=== PATIENT | female | born 1970 | race Caucasian/White ===

== ENCOUNTER 2020-04-10 16:56 | Outpatient (CLI) | payer OTHER ==
--- NOTE | 2020-04-10 17:32 | XRAY Report ---
PROCEDURE: Foot 3 View RT INDICATIONS: RIGHT FOOT CONTUSION TECHNIQUE: views of the foot were acquired. COMPARISON: None. FINDINGS: Bones: No fractures or dislocations. No suspicious bony lesions. Soft tissues: No tibiotalar joint effusion. Achilles tendon appears normal. IMPRESSION: No trauma found. Reviewed by: Felipe Hagen MD on 04/10/2020 5:30 PM [facility] Approved by: Felipe Hagen MD on 04/10/2020 5:30 PM [facility] Station ID: [id number]
== END 2020-04-10 16:57 | disposition home or self-care (01) ==
LOC: DI.S 16:56
PROVIDERS: ATTEND Emergency Medicine
DX: S90.31XA Contusion of right foot, initial encounter (principal)

== ENCOUNTER 2020-10-19 08:00 | Outpatient (CLI) | payer OTHER ==
--- NOTE | 2020-10-19 11:16 | XRAY Report ---
PROCEDURE: Knee 3 View RT INDICATIONS: RIGHT KNEE PAIN TECHNIQUE: 3 views of the right knee(s) were acquired. COMPARISON: None. FINDINGS: Bones: No fractures or dislocations. No suspicious bony lesions. Moderate joint space narrowing no trina. Soft tissues: Small joint effusion. No radiopaque foreign body. IMPRESSION: Moderate joint space narrowing and small joint effusion without fracture or foreign body . Reviewed by: Sunil Savage MD on 10/19/2020 10:14 AM [facility] Approved by: Sunil Savage MD on 10/19/2020 10:14 AM [facility] Station ID: [id number]
== END 2020-10-19 23:59 | disposition home or self-care (01) ==
LOC: DI.S 08:00
PROVIDERS: ATTEND Physician Assistant Medical
DX: M25.561 Pain in right knee (principal); M25.461 Effusion, right knee

== ENCOUNTER 2020-12-27 10:37 | Outpatient (CLI) | payer OTHER ==
[2020-12-27 14:33] LABS: BASOPHILS # (AUTO) 0.1 10^3/uL (0.0-0.1); BASOPHILS % (AUTO) 0.8 %; EOSINOPHILS # (AUTO) 0.2 10^3/uL (0.0-0.7); EOSINOPHILS % (AUTO) 3.5 %; HCT - HEMATOCRIT 40.6 % (37.0-47.0); HGB - HEMOGLOBIN 13.2 g/dL (12.0-16.0); LYMPHOCYTES # (AUTO) 2.3 10^3/uL (1.5-3.5); LYMPHOCYTES % (AUTO) 37.7 %; MEAN CORPUSCULAR HGB CONC 32.5 g/dL (32.0-36.0); MEAN CORPUSCULAR VOLUME 89.2 fL (81.0-99.0); MEAN PLATELET VOLUME 11.9 fL (7.9-10.8); MONOCYTES # (AUTO) 0.5 10^3/uL (0.0-1.0); MONOCYTES % (AUTO) 8.1 %; NEUTROPHILS % (AUTO) 49.7 %; PLT - PLATELET COUNT 264 10^3/uL (130-450); RED BLOOD COUNT 4.55 10^6/uL (4.20-5.40); RED CELL DISTRIBUTION WIDTH 13.8 % (12.0-15.0)
[2020-12-27 14:51] LABS: ALBUMIN 4.3 g/dL (3.2-5.5); ALBUMIN/GLOBULIN RATIO 1.4 (1.0-2.2); ALKALINE PHOSPHATASE 69 IU/L (42-121); ALT ALANINE AMINOTRANSFERASE 27 IU/L (10-60); AST ASPARTATE AMINOTRANSFERASE 20 IU/L (10-42); BILIRUBIN,TOTAL 0.5 mg/dL (0.2-1.0); BUN - BLOOD UREA NITROGEN 11 mg/dL (6-20); CARBON DIOXIDE - CO2 21 mmol/L (21-32); CHLORIDE 110 mmol/L (101-111); CHOL/HDL RATIO 6.4 (<4.4); CHOLESTEROL 225 mg/dL; CREATININE 0.8 mg/dL (0.4-1.0); GFR - MDRD 76 (>89); GLUCOSE 111 mg/dL (70-100); HDL CHOLESTEROL 35 mg/dL; LDL CHOLESTEROL,CALCULATED 147 mg/dL; LDL/HDL RATIO 4.2 (<4.4); POTASSIUM 3.8 mmol/L (3.5-5.0); SODIUM 141 mmol/L (135-145); TOTAL PROTEIN 7.3 g/dL (6.7-8.2); TRIGLYCERIDES 215 mg/dL; VLDL CHOLESTEROL 43 mg/dL
[2020-12-27 15:26] LABS: THYROID STIMULATING HORMONE 2.54 uIU/mL (0.34-5.60)
== END 2020-12-27 10:38 | disposition home or self-care (01) ==
LOC: LAB.S 10:37
PROVIDERS: ATTEND Registered Nurse
DX: M54.5 Low back pain (principal); Z83.49 Family history of other endocrine, nutritional and metabolic diseases; G43.909 Migraine, unspecified, not intractable, without status migrainosus; Z79.899 Other long term (current) drug therapy; G47.30 Sleep apnea, unspecified; G89.29 Other chronic pain
CPT/HCPCS: 36415; 80053; 80061; 83721; 84443; 85025

== ENCOUNTER 2022-04-08 09:43 | Outpatient (CLI) | payer OTHER ==
--- NOTE | 2022-04-09 12:46 | Mammography Report ---
BILATERAL DIGITAL SCREENING MAMMOGRAM 3D/2D WITH EXAGGERATED CC: 04/08/2022 CLINICAL: Baseline exam. Routine screening. No prior exams were available for comparison. Both breasts are heterogeneously dense, which may obscure small masses (category c / 51-75% glandular tissue). There is a 1.2 cm x 0.5 cm oval equal density focal asymmetry in the right breast at 5 o'clock middle depth. No other significant masses, calcifications, or other findings are seen in either breast. IMPRESSION: INCOMPLETE: NEEDS ADDITIONAL IMAGING EVALUATION The 1.2 cm x 0.5 cm oval equal density focal asymmetry in the right breast resembles a cyst, a lymph node, or a fibroadenoma and is indeterminate. Additional views with possible ultrasound are recommen ded. Based on the Tyrer Cuzick model (a risk assessment model) the patients lifetime risk is 13.2% and he r 10 year risk is 3.1%. According to the ACR, ACS, and NCCN guidelines, an annual breast MRI exam tyson ng with mammogram is recommended if the patients lifetime risk is 20% or greater. This exam was interpreted at Station ID: [id number]. NOTE: For mammograms, a report in lay terms will be sent to the patient. Approximately 15% of breast malignancies will not be visualized mammographically. In the management of a palpable breast mass, a negative mammogram must not discourage biopsy of a clinically suspicious lesion. Electronically Signed By: Reinier White M.D. atlin/farhat:04/08/2022 11:45:41 ACR BI-RADS Category 0: Incomplete 3340F PARENCHYMAL PATTERN: (D) - The breast(s) demonstrate(s) heterogeneously dense fibroglandular parmarky ma. BI-RADS CATEGORY: (0) - 0 Mammo and [place] [id number] Immediate follow-up LATERALITY: (R)
== END 2022-04-08 09:44 | disposition home or self-care (01) ==
LOC: DI.S 09:43
PROVIDERS: ATTEND Registered Nurse
DX: Z12.31 Encounter for screening mammogram for malignant neoplasm of breast (principal); R92.2 Inconclusive mammogram

== ENCOUNTER 2022-04-22 07:18 | Outpatient (CLI) | payer OTHER ==
--- NOTE | 2022-04-22 13:23 | Ultrasound Report ---
ULTRASOUND OF RIGHT BREAST: 04/22/2022 CLINICAL: Patient returns today to evaluate a focal asymmetry in the right breast. Comparison is made to exams dated: 04/22/2022 mammogram and 04/08/2022 mammogram - [facility]. Color flow and real-time ultrasound of the right breast were performed. Aguiar scale images of the [place] l-time examination were reviewed. There is an irregular mass in the right breast at 5 o'clock middle depth. This irregular mass is hyp oechoic with internal echoes and posterior acoustic enhancement. This correlates with mammography fi ndings. IMPRESSION: PROBABLY BENIGN The irregular mass in the right breast likely represents a fibroadenoma and is probably benign. A follow-up ultrasound in 6 months is recommended to demonstrate stability. This exam was interpreted at Station ID: [id number]. Electronically Signed By: Candice Peralta M.D. lk/:04/22/2022 08:54:59 Ultrasound BI-RADS: 3 Probably benign BI-RADS CATEGORY: (3) - 3 Ultrasound [id number] 6 month follow-up LATERALITY: (B)
--- NOTE | 2022-04-22 13:23 | Mammography Report ---
UNILATERAL RIGHT DIGITAL DIAGNOSTIC MAMMOGRAM 3D/2D WITH SPOT COMPRESSION: 04/22/2022 CLINICAL: Patient returns today to evaluate a focal asymmetry in the right breast. Comparison is made to exam dated: 04/08/2022 mammogram - [facility]. The right breast is heterogeneously dense, which may obscure small masses (category c / 51-75% glandu lar tissue). There is a 1.2 cm x 0.5 cm focal asymmetry in the right breast at 5 o'clock middle depth. This is se en in additional views. No other significant masses or calcifications are seen in the breast. IMPRESSION: INCOMPLETE: NEEDS ADDITIONAL IMAGING EVALUATION The 1.2 cm x 0.5 cm focal asymmetry in the right breast is indeterminate. A targeted ultrasound of t he right breast is recommended and will be performed immediately following this exam. Based on the Tyrer Cuzick model (a risk assessment model) the patients lifetime risk is 13.2% and he r 10 year risk is 3.1%. According to the ACR, ACS, and NCCN guidelines, an annual breast MRI exam tyson ng with mammogram is recommended if the patients lifetime risk is 20% or greater. This exam was interpreted at Station ID: [id number]. NOTE: For mammograms, a report in lay terms will be sent to the patient. Approximately 15% of breast malignancies will not be visualized mammographically. In the management of a palpable breast mass, a negative mammogram must not discourage biopsy of a clinically suspicious lesion. Electronically Signed By: Candice Peralta M.D. lk/:04/22/2022 08:13:57 ACR BI-RADS Category 0: Incomplete 3340F PARENCHYMAL PATTERN: (D) - The breast(s) demonstrate(s) heterogeneously dense fibroglandular [place]. BI-RADS CATEGORY: (0) - 0 Ultrasound [id number] Immediate follow-up LATERALITY: (B)
== END 2022-04-22 07:19 | disposition home or self-care (01) ==
LOC: DI 07:18
PROVIDERS: ATTEND Registered Nurse
DX: N63.14 Unspecified lump in the right breast, lower inner quadrant (principal)

== ENCOUNTER 2022-07-27 09:08 | Outpatient (CLI) | payer OTHER ==
--- NOTE | 2022-07-29 13:49 | SLEEP CARE CONSULTATION ---
Information from patient questionnaire entered by Radha Bond. I have reviewed and concur with the information entered by Radha Bond. This document represents the service I personally performed and the decisions made by me, Samuel Roberto MD, [facility]. History of Present Illness Service Date and Time: 07/27/2022 0908 Reason for Visit: New patient Chief Complaint: reports: Insomnia, Snoring, Fatigue, Frequent awakenings at night Time it takes to fall asleep: 10MIN Snores at night: Yes Observed to quit breathing while asleep: Yes Sleeps alone due to snoring: No Number of times waking at night: 3 Reasons for waking at night: reports: Choking, Snoring, Pain, Bathroom, Other (UNKNOWN) Toss, Turn, or Twitch while sleeping: Yes Recalls having dreams: Yes Usually gets out of bed at: 6-7AM Feels refreshed in the morning: No Morning headache: Yes Sleepy or fatigued during the day: Yes Ever fallen asleep while driving: No Takes day naps: No Dreams during day naps: Yes Prior sleep studies: Yes Additional HPI information: I have the pleasure of seeing Ms. Santana today regarding the possibility of her having obstructive sleep apnea. As you know, she is a 51-year-old lady who complains of frequent awakenings, loud snore, and persistent fatigue for about 10 years. She said she had a home sleep apnea test (HSAT) with [facility] and was told she had mild obstructive sleep apnea-hypopnea. She used a CPAP for 1.5 years. It helped initially but not toward the end. She said she quit also because her mask did not fit. She lost 20 lbs since the diagnosis. The patient tells me that she normally goes to bed around 10 pm, and it takes her approximately 10 30 minutes to fall asleep. She continues to snore loudly. Her also sees her quit breathing, although not lately. Her sleeps in the same bed and snores loudly. She can recall waking up on the average of 6 - 7 times during the night. Most of the time she wakes up because of her husbands snore, her own snoring, choking, and having to gasp for air. There is a lot of tossing and turning in her sleep. In the morning she usually gets up out of the bed around 6 - 7 a.m. not feeling refreshed nor rested. She usually has a morning headache. During the day she complains of feeling sleepy and fatigued. Her score on [place] Sleepiness Scale is 12 out of 24. She has never fallen asleep while driving nor has had any accident due to sleepiness. She usually does not take naps during the day. Upon falling asleep during the day she admits to denies having vivid dreams. She reports having impaired concentration during the day. - Parasomnia Symptoms Ever been unable to move upon waking from sleep: No Walks in sleep: Yes Talks in sleep: Yes Ever acted out dreams in sleep: No Ever felt weak in the knees when startled or emotional: Yes Bothered by creepy, crawly, restless sensations in legs: Yes Problems with memory or concentration: Yes Subjective Initial [place] Sleepiness Scale score: 12 (07/04/22) Past Medical History Past Medical History: reports: Anxiety, GERD Social History The patient's occupation is a [employer]. Patient is and lives in [place]. Have you smoked in the past 12 months: No Years of smokin Quit date: 2001 Alcohol use: Yes Alcohol amount and frequency: RANDOM Caffeine use: Yes Caffeine amount and frequency: SELDOM Allergies and Home Medications Known drug allergies: No Drug allergies reviewed: Yes Home medication list reviewed: Yes Review of Systems Weight gain over past 5 years: 30 Cardiovascular: denies: high blood pressure, palpitations, chest pain, irregular heart rate or pulse, leg or foot swelling, have to sleep sitting up, other Respiratory: denies: shortness of breath, wheeze, sputum production, chronic cough, other Gastrointestinal: reports: heartburn, difficulty swallowing Urinary: denies: incontinence, frequency, urgency, impotence, other Neurological: denies: headaches, seizure, head trauma, disorientation, speech dysfunction, gait or balance problems, fainting or unconsciousness, other Psychiatric: denies: Attention Deficit Hyperactivity, anxiety, depression, mood disorder, claustrophobia, other Ear/Nose/Throat: reports: nasal congestion, sinus problems, dry mouth/throat Endocrine: reports: sluggishness, too hot or cold Musculoskeletal: reports: joint pain, neck pain, back pain, joint swelling, muscle pain or cramping Immunologic: reports: sneezing Physical Exam Vital signs obtained and entered by: RADHA Kim MA Blood Pressure: 126/74 (LEFT ARM) Cuff size: regular Heart Rate: 66 O2 Saturation: 100 Height: 5 ft 1 in Weight: 180 lb Body Mass Index: 34.0 BMI Classification: Obese Neck circumference: 14.25 Mood/affect: normal HEENT: No craniofacial malformation Nostrils: patent to airflow Turbinates: normal Septum: midline Mouth and throat: narrow oropharynx Soft palate: long Hard palate: normal Uvula: normal Uvula visualization: 50% Mallampati Class II Tongue: normal in size Tonsils: small Chin and jaw: normal size and position Neck: normal w/o lymphadenopathy or thyromegaly Heart: regular rate and rhythm Lungs: clear bilaterally Extremities: no edema or clubbing Neurologic: intact Impression and Plan IMPRESSION: 1. Obstructive Sleep Apnea-Hypopnea Syndrome, mild, as previously diagnosed. This may be the reason for her waking up frequently during the night. Obesity is a common predisposing factor for obstructive sleep apnea- hypopnea syndrome. An in-laboratory polysomnography will be ordered to see if she still has the sleep-related breathing disorder. Plan: 1. Schedule an in-laboratory polysomnography. 2. Avoid long distance driving or when feeling sleepy. 3. Avoid alcohol, sedative and muscle relaxant around bedtime. 4. Attempt to lose more weight. 5. Return for follow up after the sleep study. Visit Type: In Office Time Spent with Patient (minutes): 15 Provider Statement: I spent 100% of the Face to Face Visit with the patient with greater than 50% spent counseling the patient and coordination of care.
[2022-07-29 13:50] VITALS: BP 126/74
== END 2022-07-27 09:09 | disposition home or self-care (01) ==
LOC: SC 09:08
PROVIDERS: ATTEND Internal Medicine Pulmonary Disease
DX: G47.33 Obstructive sleep apnea (adult) (pediatric) (principal); E66.9 Obesity, unspecified; Z68.34 Body mass index [BMI] 34.0-34.9, adult
CPT/HCPCS: 99202; 99212

== ENCOUNTER 2022-08-13 19:53 | Outpatient (CLI) | payer OTHER | END 2022-08-13 19:54 | disposition home or self-care (01) | LOC: SC 19:53 | PROVIDERS: ATTEND Internal Medicine Pulmonary Disease | DX: G47.10 Hypersomnia, unspecified (principal); G47.00 Insomnia, unspecified; R06.83 Snoring; R06.81 Apnea, not elsewhere classified; G47.8 Other sleep disorders; E66.9 Obesity, unspecified; Z68.34 Body mass index [BMI] 34.0-34.9, adult | CPT/HCPCS: 95810 ==

== ENCOUNTER 2022-08-21 15:26 | Outpatient (CLI) | payer OTHER ==
--- NOTE | 2022-08-21 15:43 | Sleep Patient Instructions ---
Sleep Center Visit Summary - Patient Visit Information Reason for Visit: Sleep study followup - Patient Instructions Instructions Attached: Snoring Tips Prevent Additional Instructions: Your sleep study today was negative for significant sleep disordered breathing. [However, you did have elevated respiratory episodes when sleeping on your back. You should avoid sleeping on your back to control these respiratory episodes.] You were found to have episodes of snoring. There are different ways to control snoring including weight loss, oral devices made by a dentist or surgical options through ENT specialist. You should not use oral devices that do not fit properly because they can affect your bite. You should also check insurance coverage of oral devices for snoring because they may not be cover well. You may obtain a referral to an ENT specialist through your primary provider Follow-up as needed. - Clinic Information Contact: [facility] [address] [place] [address] [email or web address] T: [phone]
--- NOTE | 2022-08-21 15:46 | SLEEP CARE CONSULTATION ---
Information from patient questionnaire entered by Gely Bond. I have reviewed and concur with the information entered by Gely Bond. This document represents the service I personally performed and the decisions made by , Katarina Mary ARNP. History of Present Illness Service Date and Time: 08/21/2022 152 Initial [place] Sleepiness Scale score: 12 Current [place] Sleepiness Scale score: 23 (08/21/22) Additional HPI information: MEGAN ROSS returns for follow up and results of the recently performed polysomnography. The patient was informed of the following findings: No significant sleep disordered breathing with an average AHI of 3.0 and janice oxygen saturation of 89%. I explained the pathophysiology behind obstructive sleep apnea. Patient does not have sleep apnea and was advised how weight gain could increase the risk of developing sleep apnea in the future. I strongly encouraged the patient to lose weight. Patient has light to loud snoring. Snoring can be reduced by weight loss. Weight loss is best achieved with diet consult. Patient instructed to contact PCP for referral. Snoring can also be treated with an oral appliance from a dentist. Advised to check insurance coverage. In addition, an ENT evaluation can be do to see if other treatment is indicated. Patient counseled not drink alcohol less than 4 hours before bedtime as it can increase snoring and apnea. Patient was cautioned about risks of drowsy driving until sleepiness symptoms resolve. Patient denies drowsy driving. Sleep Study - Results Type of Sleep Study: Polysomnography (COMPLETED 08/13/22) Prior sleep studies: Yes Polysomnography/Home Sleep Study results: IMPRESSION: The quality of the study is good. The patient had normal sleep efficiency. The sleep architecture was normal as well. Respiratory monitoring showed no significant sleep disordered breathing (AHI = 3.0) or hypoxia (janice oxygen saturation of 89%). The patient only slept supine (supine AHI = 3.1; non-supine = 0.00). Snore was light to loud in intensity. There was no significant periodic leg movement of sleep. Cardiac rhythm was normal sinus rhythm without significant arrhythmia. No abnormal behavior (parasomnia) observed during the night. Allergies and Home Medications Known drug allergies: No Drug allergies reviewed: Yes Home medication list reviewed: Yes (no changes) Review of Systems Review of systems same as previous: Yes (no changes) Physical Exam Vital signs obtained and entered by: GELY Kim MA Blood Pressure: 126/70 (LEFT ARM) Cuff size: regular Heart Rate: 86 O2 Saturation: 97 Height: 5 ft 1 in Weight: 177 lb 6.4 oz Body Mass Index: 33.5 BMI Classification: Obese Impression and Plan Snoring but no significant sleep disordered breathing. Patient advised that often weight loss will reduce snoring as well as apnea risk. An oral appliance can also be used for snoring. This would require a dental consultation. Patient cautioned not to use other online appliances as can cause bite issues. A list of accredited dentists in [facility] and one local dentist who makes oral appliances is available in office as needed. Patient is advised to check if insurance will cover. An ENT consult can also be helpful to determine if any other treatment is an option. * Attempt to lose weight * Avoid alcohol consumption near bedtime * The patient is cautioned about driving until sleepiness is completely resolved. * Return as needed for follow up. Counseling Topics: Weight loss health impact Visit Type: In Office Time Spent with Patient (minutes): 13 Provider Statement: I spent 100% of the Face to Face Visit with the patient with greater than 50% spent counseling the patient and coordination of care.
[2022-08-21 15:47] VITALS: BP 126/70
== END 2022-08-21 15:27 | disposition home or self-care (01) ==
LOC: SC 15:26
PROVIDERS: ATTEND Nurse Practitioner Family
DX: R06.83 Snoring (principal); E66.9 Obesity, unspecified; Z68.33 Body mass index [BMI] 33.0-33.9, adult
CPT/HCPCS: 99212

== ENCOUNTER 2022-10-12 12:56 | Outpatient (CLI) | payer OTHER ==
--- NOTE | 2022-10-14 09:01 | Ultrasound Report ---
LIMITED ULTRASOUND OF RIGHT BREAST: 10/12/2022 CLINICAL: Patient returns for a 6 month follow up of the right breast. Comparison is made to exams dated: 04/22/2022 ultrasound, 04/22/2022 mammogram, and 04/08/2022 mammogram - [facility]. Color flow ultrasound of the right breast 4 o'clock region was performed. Aguiar scale images of the r eal-time examination were reviewed. There is a stable 1 cm x 0.8 cm x 0.4 cm oval mass in the right breast at 4 o'clock middle depth 3 cm from the nipple. This oval mass is hypoechoic with internal echoes and posterior acoustic enhanceme nt. This correlates with mammography findings. IMPRESSION: PROBABLY BENIGN The stable 1 cm x 0.8 cm x 0.4 cm oval mass in the right breast likely represents a fibroadenoma and is probably benign. A follow-up ultrasound in 6 months is recommended. This exam was interpreted at Station ID: [id number]. Electronically Signed By: Waqas Cunha M.D. lc/:10/12/2022 13:34:59 Ultrasound BI-RADS: 3 Probably benign BI-RADS CATEGORY: (3) - 3 Ultrasound [id number] 6 month follow-up LATERALITY: (B)
== END 2022-10-12 12:57 | disposition home or self-care (01) ==
LOC: DI 12:56
PROVIDERS: ATTEND Registered Nurse
DX: R92.8 Other abnormal and inconclusive findings on diagnostic imaging of breast (principal)

== ENCOUNTER 2022-12-04 09:44 | Outpatient (CLI) | payer OTHER ==
--- NOTE | 2022-12-04 12:01 | XRAY Report ---
PROCEDURE: Knee 3 View RT INDICATIONS: RIGHT KNEE PAIN TECHNIQUE: 3 views of the right knee(s) were acquired. COMPARISON: 10/19/2020 FINDINGS: Bones: No fractures or dislocations. No suspicious bony lesions. Mild to moderate joint space ceci rowing Soft tissues: Small knee joint effusion. No suspicious soft tissue calcifications or masses. IMPRESSION: Mild to moderate stable joint space narrowing and small joint effusion Reviewed by: Sunil Savage MD on 12/04/2022 11:00 AM [facility] Approved by: Sunil Savage MD on 12/04/2022 11:00 AM [facility] Station ID: [id number]
== END 2022-12-04 23:59 | disposition home or self-care (01) ==
LOC: DI.S 09:44
PROVIDERS: ATTEND Physician Assistant
DX: M17.11 Unilateral primary osteoarthritis, right knee (principal); M25.461 Effusion, right knee

== ENCOUNTER 2022-12-07 11:31 | Emergency (ER) | payer OTHER ==
--- NOTE | 2022-12-07 13:04 | ED Physician Documentation ---
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 The past week now with tender, redness and swelling. Seen in Walk In and was to get outpt MRI and referral to Ortho. No meds given. Increased symptoms a lot more the past 3 days.) Timing - details: Abrupt onset, Still present Location: RLE (lateral knee area.) Quality / character: Painful, Discolored (red), Raised, Swelling. 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 : None HEENT: None Psych: Anxiety Musculoskeletal: None Derm: None - Past Surgical History Past Surgical History: Yes General: Appendectomy - Present Medications Home Medications: Ambulatory Orders Medication Instructions Recorded Confirmed Buspirone HCl 15 mg PO BID 12/07/22 12/07/22 HYDROcod/ACETAM 5/325 [[place] 5/325] 1 ea PO Q6H PRN #12 tablet 12/07/22 Montelukast [Singulair] 10 mg PO QPM 12/07/22 12/07/22 Sulfamethox/Trimeth 800/160 1 each PO BID #14 tablet 12/07/22 [Bactrim Ds 800/160] Topiramate [Topamax] 100 mg PO HS 12/07/22 12/07/22 buPROPion HCL [Bupropion HCl] 150 mg PO DAILY 12/07/22 12/07/22 traZODone [Desyrel] 50 mg PO HS 12/07/22 12/07/22 - Allergies Allergies/Adverse Reactions: Allergies Allergy/AdvReac Type Severity Reaction Status Date / Time No Known Drug Allergies Allergy Verified 12/07/22 11:42 - Social History Does the pt smoke?: No Smoking Status: Former smoker Does the pt drink ETOH?: Yes Does the pt have substance abuse?: No - Immunizations Immunizations are current?: Yes PD ED PE NORMAL - Vitals Vital signs reviewed: Yes - General General: Alert and oriented X 3, Well developed/nourished - Derm Derm: Normal color, Warm and dry, Other (right lateral knee with local swelling, tender, redness of soft tissue/sklin. There is small 2-3 cm rounded and fluctuant swelling under skin but is freely moveable from underlying structures. ) - Neuro Neuro: Alert and oriented X 3, No motor deficit, No sensory deficit, Normal speech Results - Vitals Vitals: Vital Signs - 24 hr 12/07/22 12/07/22 11:43 14:30 Temperature 36.6 C 36.4 C L Heart Rate 80 84 Respiratory 18 18 Rate Blood Pressure 126/86 H 129/78 O2 Saturation 97 99 Oxygen O2 Source Room air - Labs Labs: Microbiology 12/07/22 13:39 Wound Culture - Preliminary Leg - Right Procedures - Abscess I&D (location) right lateral knee area Preparation: Lidocaine 1%, With epi Incision: Incised with scalpel, Purulent drainage, Culture obtained Other: Pt tolerated well, Dressing applied, Antibiotic prescribed PD Medical Decision Making - ED course Complexity details: considered differential (patient seen in walk in and was getting order for MRI knee and referral to Ortho, presuming process with knee joint, I guess. I do not have [place] clinic notes. My exam it seems moveable with soft tissue and not connected to deeper/knee joint area. more c/w infected sebaceous cyst. ), d/w patient ED course: sounds like Walk In was thinking perhaps ganglion cyst or such with lump chronic and now infectied lateral to knee. But the whole of it is moveable over u nderlying layers and not tethered to area. I differ in opinon from Walk In provider and feeling it is sebaceous cyst now infected and not needing MRI nor Ortho. More so, Dermatoligy would be good follow up for potential cyst sac removal after infection is all cleared. Departure - Departure Disposition: 01 Home, Self Care Clinical Impression: Infected sebaceous cyst of skin Condition: Stable Record reviewed to determine appropriate education?: Yes Instructions: ED Abscess IandD Follow-Up: Gabrielal Hale ARNP [Primary Care Provider] - [facility] [Provider Group] Natalia Simms ARNP [Provider Admit Priv/Credential] - Prescriptions: Sulfamethox/Trimeth 800/160 [Bactrim Ds 800/160] 1 each PO BID #14 tablet HYDROcod/ACETAM 5/325 [[place] 5/325] 1 ea PO Q6H PRN #12 tablet PRN Reason: Pain Comments: I believe this is a skin cyst that has now gotten infected. Warm moist compresses or soaks 2-3 times daily for several days. Bactrim antibiotic twice daily. Iburpfen or Naproxen twice daily for inflammation and pain. Add Tylenol or Hydrocodone/tylenol for pain if needed. I would anticipate improvement over the next few days. Bactrim antibiotic twice daily for the infection. You can use some topical antibiotic ointments to the area periodically if needed as well. I sent your prescription to [facility]. We did do a culture from the purulent outflow. This will result in a couple of days. We will call you if we need to amend the antibiotic choice based on that. Otherwise follow-up with your primary care. This does sound more like it was a cyst under the skin (sebaceous cyst) that now got infected. This happens occasionally. It does not seem connected to the joint space. My opinion would be to allow the infection to clear and have it healed and then follow-up with personnel manager regarding excision of the cyst sac/lump under the skin once the infection is cleared as it would heal up better at that point. The small hole now for drainage of the wound should heal up well enough without needing sutures etc. I am prescribing a short course of narcotic pain medication for you. These are potentially dangerous and addictive medications that should be used carefully. These medications may constipate you. Take an igor-dip-lvgyimp stool softener such as docusate twice daily with plenty of water while taking these medications. If you go 24 hours without a bowel movement, take [id number] MiraLAX, per package instructions. Do not drink or drive while taking these medications. If you received narcotic or sedating medications while in the emergency department do not drive for 24 hours. Store this medication in a safe, secure place and out of reach of children. It is a violation of federal law to give or sell this medication to another person or to use in a manner other than prescribed. The ED will not refill narcotic prescriptions, including prescriptions lost or stolen. You can dispose of unwanted medications at the [facility]'s office or at several pharmacies such as [facility]. Forms: PCP List Discharge Date/Time: 12/07/22 14:35
[2022-12-07] MEDS ORDERED: HYDROcod/ACETAM 5/325 MG TABLET PO STA (13:57)
[2022-12-07] MEDS ORDERED: SULFAMETH/TRIMETH DS 800/160 MG TABLET PO STA (13:57)
[2022-12-07 14:40] VITALS: BP 129/78; O2SAT 99
== END 2022-12-07 14:35 | disposition home or self-care (01) ==
LOC: ED 11:31
DX: B43.2 Subcutaneous pheomycotic abscess and cyst (principal); Z87.891 Personal history of nicotine dependence
CPT/HCPCS: 10060; 87070; 87205; 99283; A9270

== ENCOUNTER 2023-04-13 12:30 | Outpatient (CLI) | payer OTHER ==
--- NOTE | 2023-04-16 12:48 | Ultrasound Report ---
LIMITED ULTRASOUND OF RIGHT BREAST: 04/13/2023 CLINICAL: Patient returns for a 6 month follow up of the right breast. Comparison is made to exams dated: 10/12/2022 ultrasound, 04/22/2022 ultrasound, 04/22/2022 mammogram, and 04/08/2022 mammogram - [facility]. Color flow ultrasound of the right breast 4 o'clock region was performed. Aguiar scale images of the r eal-time examination were reviewed. There is a 1 cm x 0.7 cm x 0.4 cm irregular mass in the right breast at 5 o'clock middle depth 3 cm f rom the nipple. This irregular mass is hypoechoic with internal echoes and posterior acoustic enhanc ement. This abnormality is not significantly changed. IMPRESSION: INCOMPLETE: NEEDS ADDITIONAL IMAGING EVALUATION The 1 cm x 0.7 cm x 0.4 cm irregular mass in the right breast likely represents a fibroadenoma and is probably benign. A follow-up right breast ultrasound in 6 months is recommended. However, patient' s last bilateral mammograms were performed on 04/07/2022, and patient is currently due for bilateral ma mmograms. These should be performed at the earliest possible convenience. This exam was interpreted at Station ID: [id number]. Electronically Signed By: Yaya Singh M.D. ar/:04/13/2023 20:46:04 Ultrasound BI-RADS: 0 Indeterminate BI-RADS CATEGORY: (0) - 0 RECOMMENDATION: (ADDMAM) - Recommend additional mammographic views. [id number] Immediate follow-up LATERALITY: (B)
== END 2023-04-13 12:31 | disposition home or self-care (01) ==
LOC: DI 12:30
PROVIDERS: ATTEND Registered Nurse
DX: N63.14 Unspecified lump in the right breast, lower inner quadrant (principal)

== ENCOUNTER 2023-05-10 08:12 | Outpatient (CLI) | payer OTHER ==
[2023-05-10 15:09] LABS: THYROID STIMULATING HORMONE 2.17 uIU/mL (0.34-5.60)
[2023-05-10 15:30] LABS: RHEUMATOID FACTOR NEGATIVE (Negative)
[2023-05-10 15:32] LABS: BUN - BLOOD UREA NITROGEN 17 mg/dL (6-20); CALCIUM 8.9 mg/dL (8.5-10.3); CARBON DIOXIDE - CO2 19 mmol/L (21-32); CHLORIDE 114 mmol/L (101-111); CK- CREATINE KINASE 66 IU/L (30-223); CREATININE 0.8 mg/dL (0.6-1.3); CRP - C-REACTIVE PROTEIN < 0.5 mg/dL (<0.5); GFR - MDRD 76 (>89); GLUCOSE 123 mg/dL (74-104); MAGNESIUM 1.8 mg/dL (1.7-2.3); POTASSIUM 3.7 mmol/L (3.5-4.5); SODIUM 140 mmol/L (135-145)
== END 2023-05-10 08:13 | disposition home or self-care (01) ==
LOC: LAB.S 08:12
PROVIDERS: ATTEND Internal Medicine
DX: R25.2 Cramp and spasm (principal); Z83.49 Family history of other endocrine, nutritional and metabolic diseases; M25.50 Pain in unspecified joint
CPT/HCPCS: 36415; 80048; 82550; 83735; 84443; 85651; 86140; 86200; 86430

== ENCOUNTER 2023-05-17 10:47 | Outpatient (CLI) | payer OTHER ==
--- NOTE | 2023-05-18 08:44 | Mammography Report ---
BILATERAL DIGITAL SCREENING MAMMOGRAM 3D/2D WITH EXAGGERATED CC: 05/17/2023 CLINICAL: Routine screening. Comparison is made to exams dated: 04/22/2022 mammogram and 04/08/2022 mammogram - [facility]. Both breasts are heterogeneously dense, which may obscure small masses (category c / 51-75% glandular tissue). No significant masses, calcifications, or other findings are seen in either breast. There has been no significant interval change. IMPRESSION: NEGATIVE There is no mammographic evidence of malignancy. A 1 year screening mammogram is recommended. All fi ndings stable. 6 month sonographic followup was recommended for the 5:00 mass confirmed on recent prior ultrasound. Future imaging is recommended as follows: 10/12/2023 follow-up right ultrasound. Based on the Tyrer Cuzick model (a risk assessment model) the patient's lifetime risk is 13.4% and he r 10 year risk is 3.3%. According to the ACR, ACS, and NCCN guidelines, an annual breast MRI exam tyson ng with mammogram is recommended if the patient's lifetime risk is 20% or greater. This exam was interpreted at Station ID: [id number]. NOTE: For mammograms, a report in lay terms will be sent to the patient. Approximately 15% of breast malignancies will not be visualized mammographically. In the management of a palpable breast mass, a negative mammogram must not discourage biopsy of a clinically suspicious lesion. Electronically Signed By: Waqas Cunha M.D. lc/:05/17/2023 11:28:55 letter sent: No_Letter ACR BI-RADS Category 1: Negative 3341F PARENCHYMAL PATTERN: (D) - The breast(s) demonstrate(s) heterogeneously dense fibroglandular [place]. BI-RADS CATEGORY: (1) - 1 Mammogram [id number] 1 year screening LATERALITY: (B)
== END 2023-05-17 10:48 | disposition home or self-care (01) ==
LOC: DI.S 10:47
PROVIDERS: ATTEND Registered Nurse
DX: Z12.31 Encounter for screening mammogram for malignant neoplasm of breast (principal); R92.333 Mammographic heterogeneous density, bilateral breasts

== ENCOUNTER 2023-10-13 13:39 | Outpatient (CLI) | payer OTHER ==
--- NOTE | 2023-10-14 10:41 | Ultrasound Report ---
LIMITED ULTRASOUND OF RIGHT BREAST: 10/13/2023 CLINICAL: Patient returns for a 6 month follow up of the right breast. Comparison is made to exams dated: 05/17/2023 mammogram, 10/12/2022 ultrasound, 04/13/2023 ultrasound, ultrasound, 04/22/2022 mammogram, and 04/08/2022 mammogram - [facility]. Color flow ultrasound of the right breast 4 o'clock region was performed. There is a 0.9 cm x 0.5 cm x 0.4 cm irregular mass in the right breast at 4 o'clock middle depth 3 cm from the nipple. This irregular mass is hypoechoic with internal echoes and posterior acoustic enha ncement. This abnormality maybe slightly smaller, but overall, is not significantly changed. IMPRESSION: PROBABLY BENIGN The 0.9 cm x 0.5 cm x 0.4 cm irregular mass in the right breast likely represents a fibroadenoma and is probably benign. A follow-up right ultrasound in 6 months is recommended to demonstrate stability. The patient will be due for bilateral mammograms at that same visit. [facility] This exam was interpreted at Station ID: [id number]. Electronically Signed By: Clara cobb/:10/13/2023 14:23:23 Ultrasound BI-RADS: 3 Probably benign BI-RADS CATEGORY: (3) - 3 Ultrasound [id number] 6 month follow-up LATERALITY: (R)
== END 2023-10-13 13:40 | disposition home or self-care (01) ==
LOC: DI 13:39
PROVIDERS: ATTEND Registered Nurse
DX: N63.14 Unspecified lump in the right breast, lower inner quadrant (principal)

== ENCOUNTER 2023-11-15 07:03 | Outpatient (CLI) | payer OTHER ==
[2023-11-15 15:09] LABS: CALCIUM 9.5 mg/dL (8.5-10.3); CREATININE 0.9 mg/dL (0.6-1.3); POTASSIUM 3.3 mmol/L (3.5-4.5)
[2023-11-15 19:44] LABS: ESTIMATED AVERAGE GLUCOSE 94 mg/dL (70-100); HEMOGLOBIN A1c% 4.9 % (4.27-6.07)
== END 2023-11-15 07:04 | disposition home or self-care (01) ==
LOC: LAB.S 07:03
PROVIDERS: ATTEND Internal Medicine
DX: R53.1 Weakness (principal); R63.1 Polydipsia
CPT/HCPCS: 36415; 80048; 83036; 83735

== ENCOUNTER 2023-11-23 13:32 | Outpatient (CLI) | payer OTHER | END 2023-11-23 23:59 | disposition EMS.NT | LOC: EMS 13:32 | DX: R42 Dizziness and giddiness (principal) ==

== ENCOUNTER 2023-11-26 07:02 | Outpatient (CLI) | payer OTHER ==
[2023-11-26 14:42] LABS: BASOPHILS # (AUTO) 0.1 10^3/uL (0.0-0.1); BASOPHILS % (AUTO) 0.8 %; EOSINOPHILS # (AUTO) 0.2 10^3/uL (0.0-0.7); EOSINOPHILS % (AUTO) 3.7 %; HCT - HEMATOCRIT 44.7 % (37.0-47.0); LYMPHOCYTES # (AUTO) 2.3 10^3/uL (1.5-3.5); LYMPHOCYTES % (AUTO) 37.9 %; MEAN CORPUSCULAR HGB CONC 31.3 g/dL (32.0-36.0); MEAN CORPUSCULAR VOLUME 92.5 fL (81.0-99.0); MEAN PLATELET VOLUME 11.6 fL (7.9-10.8); MONOCYTES # (AUTO) 0.6 10^3/uL (0.0-1.0); MONOCYTES % (AUTO) 9.4 %; NEUTROPHILS # (AUTO) 2.9 10^3/uL (1.5-6.6); PLT - PLATELET COUNT 251 10^3/uL (130-450); RED BLOOD COUNT 4.83 10^6/uL (4.20-5.40); RED CELL DISTRIBUTION WIDTH 13.8 % (12.0-15.0)
[2023-11-26 15:39] LABS: ALBUMIN 4.2 g/dL (3.2-5.5); ALBUMIN/GLOBULIN RATIO 1.7 (1.0-2.2); ALKALINE PHOSPHATASE 71 IU/L (42-121); ALT ALANINE AMINOTRANSFERASE 18 IU/L (10-60); AST ASPARTATE AMINOTRANSFERASE 14 IU/L (10-42); BILIRUBIN,TOTAL 0.5 mg/dL (0.2-1.0); BUN - BLOOD UREA NITROGEN 13 mg/dL (6-20); CALCIUM 9.1 mg/dL (8.5-10.3); CARBON DIOXIDE - CO2 22 mmol/L (21-32); CHLORIDE 110 mmol/L (101-111); CHOL/HDL RATIO 6.9 (<4.4); CHOLESTEROL 257 mg/dL; CREATININE 0.8 mg/dL (0.6-1.3); GFR - MDRD 76 (>89); GLUCOSE 120 mg/dL (74-104); HDL CHOLESTEROL 37 mg/dL; POTASSIUM 3.8 mmol/L (3.5-4.5); SODIUM 139 mmol/L (135-145); TOTAL PROTEIN 6.7 g/dL (6.4-8.9); TRIGLYCERIDES 520 mg/dL
[2023-11-26 16:15] LABS: THYROID STIMULATING HORMONE 1.92 uIU/mL (0.34-5.60)
[2023-11-26 16:36] LABS: LDL CHOLESTEROL,DIRECT 160 mg/dL (75-193); LDLD/HDL RATIO 4.3 (<4.4)
== END 2023-11-26 07:03 | disposition home or self-care (01) ==
LOC: LAB.S 07:02
PROVIDERS: ATTEND Registered Nurse
DX: Z13.228 Encounter for screening for other metabolic disorders (principal); Z13.220 Encounter for screening for lipoid disorders; Z13.29 Encounter for screening for other suspected endocrine disorder; Z13.0 Encounter for screening for diseases of the blood and blood-forming organs and certain disorders involving the immune mechanism
CPT/HCPCS: 36415; 80053; 80061; 83721; 84443; 85025

== ENCOUNTER 2023-12-29 13:12 | Outpatient (CLI) | payer OTHER ==
[2023-12-29] MEDS: ALBUTEROL 1 PUFF INH STA (14:00)
== END 2023-12-29 13:13 | disposition home or self-care (01) ==
LOC: RT 13:12
PROVIDERS: ATTEND Registered Nurse
DX: R06.02 Shortness of breath (principal)
CPT/HCPCS: 94060; 94729